=== PATIENT | female | born 1960 | race Caucasian/White ===

== ENCOUNTER 2018-06-02 00:54 | Outpatient (CLI) | payer BC, SELFPAY ==
--- NOTE | 2018-06-02 13:53 | DI.COMBO_ITS ---
SYMPTOMS/DIAGNOSIS: LT BREAST LUMP, N63.20 MAMMOGRAM, ADDITIONAL VIEWS OF THE LEFT BREAST AND LEFT BREAST ULTRASOUND: Mammograms were interpreted according to the usual protocol including computer analysis with CAD system, tomosynthesis and C view imaging. Comparison is with the prior examinations. Breast density B. No suspicious masses or microcalcifications are seen. The skin and axillae are unremarkable. A left breast ultrasound was performed in the area of palpable abnormality at the 11 o'clock position of the left breast as directed by the patient; no cystic or solid masses are seen. In the retroareolar region of the left breast , there is a very well-circumscribed round avascular hypoechoic lesion measuring 1 cm in maximum diameter. No internal blood flow, posterior acoustic enhancement or shadowing is seen. IMPRESSION: No definite evidence for malignancy. Well-circumscribed nodule in the left retroareolar region without malignant characteristics sonographically. A six-month followup left breast ultrasound and mammogram are requested for reevaluation. In the area of palpable abnormality, no findings are seen mammographically or sonographically. Category 3. The findings were discussed with the patient on the date of the examination. MQSA ASSESSMENT OF FINDINGS: Probably benign. Six month follow-up recommended. Category 3. Patient will receive a letter notifying them of these results. BI-RADS category B. There are scattered areas of fibroglandular density.
== END 2018-06-02 01:14 ==
PROVIDERS: PCP Nurse Practitioner Family; Visit Provider Obstetrics & Gynecology
DX: N63.22 Unspecified lump in the left breast, upper inner quadrant (principal)
CPT/HCPCS: 76642; 77062; 77066; G0279

== ENCOUNTER 2018-12-15 01:28 | Outpatient (CLI) | payer BC, SELFPAY ==
--- NOTE | 2018-12-15 09:57 | DI.COMBO_ITS ---
SYMPTOM/DIAGNOSIS: F/U ABNL MAMMO, 6 MO F/U, R92.8 LEFT MAMMOGRAM : Mammograms were interpreted according to the usual protocol including computer analysis with CAD system, tomosynthesis and C view imaging. This is a 6 month follow up from 06/02/18. The left breast is composed of scattered fibroglandular densities, breast density, Category B. No suspicious masses or suspicious microcalcifications are seen. LEFT BREAST ULTRASOUND: The exam was performed to follow up a circumscribed nodule. The nodule is again circumscribed with smooth borders and measures 8 mm. in diameter. No suspicious features are seen. IMPRESSION: Category 3, negative mammogram with benign findings. Bilateral screening should be resumed in 6 months. SA ASSESSMENT OF FINDINGS: Negative with benign findings. Category 3. Patient will receive a letter notifying them of these results. BI-RADS category B. There are scattered areas of fibroglandular density.
== END 2018-12-15 01:48 ==
PROVIDERS: PCP Nurse Practitioner Family; Visit Provider Obstetrics & Gynecology
DX: Z12.31 Encounter for screening mammogram for malignant neoplasm of breast (principal); R92.8 Other abnormal and inconclusive findings on diagnostic imaging of breast; N60.82 Other benign mammary dysplasias of left breast
CPT/HCPCS: 76642; 77061; 77065; G0279

== ENCOUNTER 2019-04-05 08:06 | Day surgery (SDC) | payer BC, SELFPAY ==
--- NOTE | 2019-04-05 06:58 | COLE_ITS ---
Date of service: 04/05/19 Time of Service: 09:29 Colonoscopy Report Date of procedure: 04/05/19 Pre-op diagnosis general: Hx of polyps Post-op diagnosis procedure note: other (Polyps) Procedure: Colonoscopy with polypectomies by cold forceps Surgeon: Lisa Martini Anesthesia proc note operative: other (General/ ASA 2/ Olive Betancur CRNA) Estimated blood loss (mL): 5 Pathology: other (Ascending colon polyps and transverse colon polyps) Complications: None Disposition: same day Indications: Mrs Pepe is a pleasant 58-year-old female who was seen in the office for a colonoscopy. Her last colonoscopy was in 2013 where she was found to have a tubular adenoma. Risks, benefits and complications have been reviewed. Complications include but are not limited to bleeding, pain, perforation, missed small lesion/polyp, sore throat, aspiration and adverse reaction to the medications. Questions were entertained and answered to their satisfaction and they wished to proceed. No guarantees were given or implied. Prep: Miralax/Dulcolax Procedure Start Time: : Procedure End Time: 10:00 Retraction Time: 26 minutes Findings: Multiple small polyps Procedure Description: After informed consent was obtained the patient was taken to the procedure room and placed in a left decubitous position. Monitors were applied and a time out was done. The patients name, date of , procedure, allergies to medications and metal in their body was reviewed. The patient was then sedated. Once sedated and comfortable a rectal exam was done. External exam was normal. Internal exam revealed a normal sphincter tone and no palpable mass es. The scope was then introduced and retro-flexed. No internal hemorrhoids, masses or polyps were identified. The scope was then advanced to the cecum without difficulty. The TI and appendiceal orifice were identified. The prep was good. The scope was then slowly retracted over 26 minutes back into the rectum. Polyps were removed with cold forceps in the ascending colon and transverse col on. The scope was removed and the patient was woken up and taken back to Same day surgery in stable condition. The patient tolerated the procedure well and there were no immediate complications. Follow up: The patient should follow up in 3-5 years unless they develop changes in bowel habits or other new gastrointestinal complaints.
--- NOTE | 2019-04-05 06:59 | PDOC.DSDIS_ITS ---
Discharge Plan Disposition Patient Disposition: HOME Condition: Good Discharge Details Reason For Visit: Hx of Colon Polyp Attending Provider: Lisa Martini Primary Care Provider: Jeovany Houston Home Meds and New Rx's Prescriptions: Continued cholecalciferol (vitamin D3) 1,000 unit capsule 1,000 unit PO DAILY RF: 0 clonidine HCl 0.1 mg tablet 0.1 mg PO BID RF: 0 cranberry extract 300 mg tablet 300 mg PO DAILY RF: 0 aspirin [Adult Low Dose Aspirin] 81 mg tablet,delayed release (DR/EC) 81 mg PO DAILY RF: 0 calcium carbonate-vitamin D3 [Calcium 600 with Vitamin D3] 600 mg(1,500mg) - 400 unit capsule 1 cap PO DAILY RF: 0 losartan 50 MG tablet 100 mg PO DAILY Qty: 1 RF: 0 loratadine 10 MG tablet 10 mg PO DAILY RF: 0 multivitamin [Daily Multi-Vitamin] 1 EACH tablet 1 tab PO DAILY RF: 0 Discharge Instructions Instructions: Colonoscopy (GEN), Colorectal Polyps (GEN) Additional Instructions: Findings: Multiple small polyps Follow up: 3-5 years Please call if you develop: fevers >101.5 Nausea or Vomiting Abdominal pain that is not transient DAY SURGERY UNIT POST COLONOSCOPY INSTRUCTIONS 1. Because there will be medication in your system for the next 24 hours, you may feel a little sleepy. Your coordination will be affected. Therefore: a. Do not drive or operate dangerous equipment for 24 hours. b. Do not drink alcohol beverages for 24 hours (not even beer). c. Plan to go home and rest for the day. 2. Generally there are no restrictions on your activity after a day or so has gone by, but you may feel a bit fatigued for a few days. 3 After you arrive home you may have a light meal and return to a normal diet as you can tolerate it without feeling sick to your stomach. 4. After surgery, you may feel pain or discomfort. This should be only transient, but if it persists please contact your doctor. 5. If there are any questions regarding the findings of your procedure, please feel free to contact your doctor. 6. If you are unable to contact your doctor with a problem, contact the hospital at [phone]. 7. Continue all your regular medications unless directed otherwise. I understand the above instructions and have no questions. Signature of Patient or Responsible Adult Escort Date/Time Name of Responsible Adult Escort Signature of Nurse Date/Time Activity:: Activity as Tolerated Diet:: As Tolerated Discharge Orders Discharge Orders: Discharge Order (Routine); Ordered 04/05/19 Ordered By: Lisa Martini DS: Diagnosis Discharge Diagnosis (1) History of colonoscopy: Status: Chronic (2) Colon polyp: Status: Resolved
[2019-04-05 08:26] VITALS: BP 146/104; PULSE 72; RESP 18; TEMP 36; O2SAT 100
[2019-04-05] MEDS: Lactated Ringers 1,000 ML 80 ML IV (08:34)
[2019-04-05] MEDS: Lidocaine 2% Pres-Free 5 ML VIAL (09:25)
[2019-04-05] MEDS: PROPOFOL 500 MG/50 ML BTL 40 MG (09:25)
--- NOTE | 2019-04-05 09:44 | BOWEL_PTH ---
PATIENT: Rema Pepe LOC: [facility] U#:[id number] AGE/SX: 58/F ROOM: RE04/05/[address]: Lisa Martini MD : 1960 BED: DIS: 04/05/2019 SPEC #: [id number] RECD: 04/05/19 12:40 STATUS: BRANDON RE #: [id number] FROY: 04/05/19 09:[address]: Lisa Martini DEPT: Surgical Specimen RECD BY: Jessica Esparza ENTERED: 04/05/19 12:41 SP TYPE: Bowel OTHR DR: Jeovany Houston Tissues: 1 - BIOPSY BOWEL 2 - BIOPSY BOWEL Procedures: GROSS AND MICRO LEVEL 4 Comments: [id number]
[2019-04-05 10:40] VITALS: BP 129/65; PULSE 50; RESP 16; TEMP 36; O2SAT 100
== END 2019-04-05 11:15 | disposition home or self-care (01) ==
LOC: SUR 08:06
PROVIDERS: PCP Nurse Practitioner Family; Visit Provider Surgery
PROC: 0DJD8ZZ Inspection of Lower Intestinal Tract, Via Natural or Artificial Opening Endoscopic (ICD-10-PCS; CPT 45378; principal; 2019-04-05 09:30)
DX: Z12.11 Encounter for screening for malignant neoplasm of colon (principal); Z86.010 Personal history of colon polyps; D12.2 Benign neoplasm of ascending colon; D12.3 Benign neoplasm of transverse colon; I10 Essential (primary) hypertension
CPT/HCPCS: 45380; 88305

== ENCOUNTER 2019-08-11 00:57 | Outpatient (CLI) | payer BC, SELFPAY ==
--- NOTE | 2019-08-11 15:28 | DI.MAMMO_ITS ---
EXAM: MG MAMMO SCREENING CLINICAL HISTORY: screening, Z12.39. TECHNIQUE: Full field digital CC and MLO mammographic images were obtained with 3D tomosynthesis and utilizing computer aided detection (CAD). COMPARISON: 2008 through November,. FINDINGS: Breast Density - Category B - Scattered areas of fibroglandular density Masses/Architectural Distortion: None seen. Microcalcifications: No suspicious pleomorphic-type calcifications are seen. Skin Thickening/Nipple Retraction: None. Axilla: Unremarkable. IMPRESSION: 1. BI-RADS category 1, negative. No significant interval change with no specific features of maligna ncy noted. 2. Unless there is more urgent need, screening mammography is recommended, as per [place] [employer] guidelines. BI-RADS Cat 1 - Negative Breast Density - Category B - Scattered areas of fibroglandular density A negative radiographic report should not delay biopsy if a dominant or clinically suspicious mass is present. Up to ten percent of cancers are not identified on mammography. A negative report may reinforce clinical impression. Adenosis and dense breasts may obscure an underlying neoplasm. False positive reports average 6 to 10%. Patient will receive a letter notifying them of these results.
== END 2019-08-11 01:17 ==
PROVIDERS: PCP Nurse Practitioner Family; Visit Provider Nurse Practitioner Women's Health
DX: Z12.31 Encounter for screening mammogram for malignant neoplasm of breast (principal)
CPT/HCPCS: 77063; 77067

== ENCOUNTER 2020-01-24 17:52 | Outpatient (REF) | payer BC, SELFPAY ==
[2020-01-24 16:32] LABS: HCT 43.8 % (36.0-46.0); Mean Corp. HGB Concentration 34.2 g/dL (32.0-36.0); Mean Corpuscular Hemoglobin 30.6 pg (27.0-33.0); Mean Corpuscular Volume 89.4 fL (80-95); Mean Platelet Volume 9.7 fL (8.0-11.0); Platelet Count 233 x1000/uL (130-400); White Blood Cell Count 3.59 k/cumm (4.4-10.8)
[2020-01-24 17:06] LABS: Albumin 3.9 g/dL (3.4-5.0); Alkaline Phosphatase 113 U/L (46-116); BUN 20 mg/dL (7-18); Bilirubin, Total 0.4 mg/dL (0.2-1.0); CO2 28.6 mmol/L (21.0-32.0); Calcium 9.4 mg/dL (8.5-10.1); Calculated LDL 115 mg/dL (<100); Chloride 105 mmol/L (98-107); Cholesterol 204 mg/dL (<200); Glucose 99 mg/dL (74-106); HDL Cholesterol 83 mg/dL (40-60); Potassium 4.3 mmol/L (3.5-5.1); Sodium 140 mmol/L (136-145); Total Protein 6.6 g/dL (6.4-8.2); Triglyceride 33 mg/dL (<150)
[2020-01-24 17:07] LABS: ALT 46 U/L (14-59); AST 26 U/L (15-37); Anion Gap 6.4 mmol/L (3-11); Magnesium 1.9 mg/dL (1.8-2.4); TSH (W/Ref FT4) 0.94 uIU/mL (0.36-3.74)
== END 2020-01-24 18:12 ==
LOC: NCHCN 17:52
PROVIDERS: PCP Nurse Practitioner Family; Visit Provider Nurse Practitioner Family
DX: I10 Essential (primary) hypertension (principal); Z13.220 Encounter for screening for lipoid disorders; Z68.30 Body mass index [BMI] 30.0-30.9, adult
CPT/HCPCS: 80053; 80061; 85027; 83735; 84443

== ENCOUNTER 2020-02-28 10:17 | Outpatient (REF) | payer BC, SELFPAY ==
[2020-02-28 16:56] LABS: Anion Gap 7.2 mmol/L (3-11); BUN 26 mg/dL (7-18); CO2 27.8 mmol/L (21.0-32.0); CREATININE 0.86 mg/dL (0.55-1.02); Calcium 9.5 mg/dL (8.5-10.1); Chloride 106 mmol/L (98-107); Glucose 104 mg/dL (74-106); Potassium 5.1 mmol/L (3.5-5.1); Sodium 141 mmol/L (136-145)
== END 2020-02-28 10:37 ==
LOC: NCHCN 10:17
PROVIDERS: PCP Nurse Practitioner Family; Visit Provider Nurse Practitioner Family
DX: Z79.899 Other long term (current) drug therapy (principal)
CPT/HCPCS: 80048

== ENCOUNTER 2021-05-15 15:54 | Outpatient (REF) | payer BC, SELFPAY ==
--- NOTE | 2021-05-15 13:30 | PAPFT_PTH ---
PATIENT: Rema Pepe LOC: [facility] U#:[id number] AGE/SX: 60/F ROOM: RE05/15/[address]: ESAU Pozo : 1960 BED: DIS: 05/15/2021 SPEC #: [id number] RECD: 05/15/21 16:17 STATUS: BRANDON REQ #: [id number] FROY: 05/15/21 13:[address]: Tory Jo DEPT: [facility] Cytology RECD BY: Jessica Esparza ENTERED: 05/15/21 16:17 SP TYPE: PAPFT OTHR DR: Jeovany Houston Tissues: 1 - CX/ENDOCX FOR PAP SMEARS Procedures: PAP THIN PREP/UVM Screening HPV DNA PROBE Comments: [id number]
== END 2021-05-15 15:55 | disposition home or self-care (01) ==
LOC: LBN 15:54
PROVIDERS: PCP Nurse Practitioner Family; Visit Provider Nurse Practitioner Family
DX: Z12.4 Encounter for screening for malignant neoplasm of cervix (principal); Z11.51 Encounter for screening for human papillomavirus (HPV)
CPT/HCPCS: 88142; 87624

== ENCOUNTER 2021-06-06 02:21 | Outpatient (CLI) | payer BC, SELFPAY ==
--- NOTE | 2021-06-06 08:45 | DI.MAMMO_ITS ---
Exam(s) MAMMO SCREENING EXAM: MAMMO SCREENING CLINICAL HISTORY: screening, Z12.39. TECHNIQUE: Bilateral full field digital CC and MLO mammographic images were obtained with 3D tomosyn thesis and utilizing computer aided detection (CAD). COMPARISON: Prior mammograms dating back to 2011, the most recent being July 2019. FINDINGS: There are no new spiculated masses nor malignant appearing microcalcification groups. There is no significant architectural distortion nor skin thickening-retraction. IMPRESSION: No radiographic evidence of malignancy. BI-RADS Category 1 - Negative Breast Density - Category B - Scattered areas of fibroglandular density Breast density Category C or D implies that the patient has dense breast tissue. Dense breast tissue can make it harder to find cancer on a mammogram. Dense breast tissue is also associated with an incr eased risk of breast cancer. This information about the result of the mammogram report was provided to the patient to raise their awareness. Use this report when you speak with the patient about their risks for breast cancer, which includes their family history. At that time, you may recommend additional screening tests (Ultrasoun d or MRI) as these tests may add significant information. A negative radiographic report should not delay biopsy if a dominant or clinically suspicious mass is present. Up to ten percent of cancers are not identified on mammography. A negative report may reinforce clinical impression. Adenosis and dense breasts may obscure an underlying neoplasm. False positive reports average 6 to 10%. Patient will receive a letter notifying them of these results.
== END 2021-06-06 02:41 ==
PROVIDERS: PCP Nurse Practitioner; Visit Provider Nurse Practitioner Family
DX: Z12.31 Encounter for screening mammogram for malignant neoplasm of breast (principal)
CPT/HCPCS: 77063; 77067

== ENCOUNTER 2021-07-24 14:19 | Outpatient (REF) | payer BC, SELFPAY ==
[2021-07-24 16:52] LABS: ALT 36 U/L (14-59); AST 19 U/L (15-37); Albumin 3.8 g/dL (3.4-5.0); Alkaline Phosphatase 110 U/L (46-116); Anion Gap 6.7 mmol/L (3-11); BUN 18 mg/dL (7-18); Bilirubin, Total 0.3 mg/dL (0.2-1.0); CO2 28.3 mmol/L (21.0-32.0); CREATININE 0.8 mg/dL (0.55-1.02); Calcium 9.2 mg/dL (8.5-10.1); Chloride 108 mmol/L (98-107); Glucose 99 mg/dL (74-106); Potassium 4.4 mmol/L (3.5-5.1); Sodium 143 mmol/L (136-145); Total Protein 6.6 g/dL (6.4-8.2)
== END 2021-07-24 14:20 | disposition home or self-care (01) ==
LOC: NCHCN 14:19
PROVIDERS: PCP Nurse Practitioner; Visit Provider Nurse Practitioner
DX: I10 Essential (primary) hypertension (principal)
CPT/HCPCS: 80053

== ENCOUNTER → 2022-07-09 02:51 | Outpatient (CLI) | payer BC, SELFPAY ==
--- NOTE | 2022-07-09 08:08 | DI.MAMMO_ITS ---
Exam(s) MAMMO SCREENING EXAM: MAMMO SCREENING CLINICAL HISTORY: screening,z12.39. TECHNIQUE: Bilateral full field digital CC and MLO mammographic images were obtained with 3D tomosyn thesis and utilizing computer aided detection (CAD). COMPARISON: Prior mammograms were reviewed. FINDINGS: There are no new significant findings in left breast. The right breast on the MLO view there is asymmetric density superiorly approximately 5 cm in from th e nipple, measuring 1.7 x 1.0 cm, somewhat more evident on prior studies. Recommend spot-compression view. There are no new malignant appearing microcalcification groups in this region or elsewhere in either breast. There is no significant architectural distortion nor skin thickening-retraction. IMPRESSION: 1. No radiographic evidence of malignancy in left breast. 2. A segment trick density-possible nodule in the right breast. Follow-up right breast MLO spot view and ultrasound recommended. BI-RADS Category 0 - Assessment Incomplete: Need additional imaging evaluation Breast Density - Category B - Scattered areas of fibroglandular density Breast density Category C or D implies that the patient has dense breast tissue. Dense breast tissue can make it harder to find cancer on a mammogram. Dense breast tissue is also associated with an incr eased risk of breast cancer. This information about the result of the mammogram report was provided to the patient to raise their awareness. Use this report when you speak with the patient about their risks for breast cancer, which includes their family history. At that time, you may recommend additional screening tests (Ultrasoun d or MRI) as these tests may add significant information. A negative radiographic report should not delay biopsy if a dominant or clinically suspicious mass is present. Up to ten percent of cancers are not identified on mammography. A negative report may reinforce clinical impression. Adenosis and dense breasts may obscure an underlying neoplasm. False positive reports average 6 to 10%. Patient will receive a letter notifying them of these results.
== END ==
PROVIDERS: Visit Provider Nurse Practitioner Women's Health
DX: Z12.31 Encounter for screening mammogram for malignant neoplasm of breast (principal); R92.8 Other abnormal and inconclusive findings on diagnostic imaging of breast
CPT/HCPCS: 77063; 77067

== ENCOUNTER → 2022-07-12 00:26 | Outpatient (CLI) | payer BC, SELFPAY ==
--- NOTE | 2022-07-12 | DI.MAMMO_ITS ---
Exam(s) MAMMO SCREEN CALL BACK UNI EXAM: MAMMO SCREEN CALL BACK UNI-RIGHT AND COMPLETE RIGHT BREAST ULTRASOUND CLINICAL HISTORY: POSSIBLE NODULE RT BREAST, ASYMMETRIC DENSITY. TECHNIQUE: Unilateral RIGHT BREAST spot mammographic images obtained with 3D tomosynthesisand utiliz ing computer aided detection (CAD). . Complete RIGHT breast Ultrasound was also performed, including all 4 quadrants, the retroareolar jorge alberto on, and the ipsilateral axilla. COMPARISON: Prior mammograms were reviewed. This additional imaging was performed due to findings described on the recent screening mammogram of 07/12/2022. FINDINGS: DIAGNOSTIC MAMMOGRAM: Additional mammographic views performed todayrenders this area less concerning and similar in appeara nce to prior mammograms. COMPLETE BREAST ULTRASOUND: Ultrasound performed today reveals a solitary finding which is at 10 o'clock position, wider than kaleigh ler superficially located and measures approximately 11 x 5 millimeters. This is uniformly hyperecho ic and has appearance of a probable benign lipoma. This may or may not correspond to the finding on the mammogram at this location. Nevertheless, we were dealing with benign-appearing findings here. Scanning of the ipsilateral axilla reveals no significant adenopathy. IMPRESSION: 1. No radiographic evidence of malignancy in the right breast.. 2. Benign-appearing 10 o'clock position right breast finding on ultrasound. Appropriate follow-up , as discussed by myself with the patient today, is repeat right breast imaging in 6 months to include repeat right breast mammogram and ultrasound. The patient was informed of these findings and recommendations by myself prior to leaving the departm ent today. BI-RADS Category 3 - 6 month - Probably Benign Finding: Recommend follow-up mammography in 6 months Breast Density - Category B - Scattered areas of fibroglandular density Breast density Category C or D implies that the patient has dense breast tissue. Dense breast tissue can make it harder to find cancer on a mammogram. Dense breast tissue is also associated with an incr eased risk of breast cancer. This information about the result of the mammogram report was provided to the patient to raise their awareness. Use this report when you speak with the patient about their risks for breast cancer, which includes their family history. At that time, you may recommend additional screening tests (Ultrasoun d or MRI) as these tests may add significant information. A negative radiographic report should not delay biopsy if a dominant or clinically suspicious mass is present. Up to ten percent of cancers are not identified on mammography. A negative report may reinforce clinical impression. Adenosis and dense breasts may obscure an underlying neoplasm. False positive reports average 6 to 10%. Patient will receive a letter notifying them of these results.
--- NOTE | 2022-07-12 | DI.US_ITS ---
Exam(s) US BREAST RT COMPLETE EXAM: US BREAST RT COMPLETE CLINICAL HISTORY: POSSIBLE NODULE RT BREAST, ASYMMETRIC DENSITY. TECHNIQUE: Complete ultrasound of the right breast was performed including all 4 quadrants, the retr oareolar region, and the ipsilateral axilla. COMPARISON: Prior mammograms were reviewed. FINDINGS: See combined report IMPRESSION: Appropriate follow-up is as described on the combined report. BI-RADS Category 3 - 6 month - Probably Benign Finding: Recommend follow-up mammography in 6 months Breast Density - Category B - Scattered areas of fibroglandular density Breast density Category C or D implies that the patient has dense breast tissue. Dense breast tissue can make it harder to find cancer on a mammogram. Dense breast tissue is also associated with an incr eased risk of breast cancer. This information about the result of the mammogram report was provided to the patient to raise their awareness. Use this report when you speak with the patient about their risks for breast cancer, which includes their family history. At that time, you may recommend additional screening tests (Ultrasoun d or MRI) as these tests may add significant information. A negative radiographic report should not delay biopsy if a dominant or clinically suspicious mass is present. Up to ten percent of cancers are not identified on mammography. A negative report may reinforce clinical impression. Adenosis and dense breasts may obscure an underlying neoplasm. False positive reports average 6 to 10%. Patient will receive a letter notifying them of these results.
== END ==
PROVIDERS: Visit Provider Nurse Practitioner Women's Health
DX: R92.8 Other abnormal and inconclusive findings on diagnostic imaging of breast (principal)
CPT/HCPCS: 76642; 77063; 77067

== ENCOUNTER 2022-08-02 19:07 | Outpatient (REF) | payer BC, SELFPAY ==
--- NOTE | 2022-08-02 15:01 | SKI_PTH ---
PAT[facility]: [id number] AGE/SX: 62/F ROOM: RE08/02/[address]: KAYLIE FAGAN : 1960 BED: DIS: 08/02/2022 SPEC #: [id number] RECD: 08/05/22 12:16 STATUS: BRANDON REQ #: [id number] FROY: 08/02/22 15:[address]: Kaylie Fagan DEPT: Surgical Specimen RECD BY: Jessica Esparza ENTERED: 08/05/22 12:17 SP TYPE: VISHAL CASON DR: Jeovany Houston Tissues: 1 - SKIN BIOPSY(SHAVE/PUNCH) Procedures: SKIN LEVEL 4 Comments: [id number]
[2022-08-02 19:39] LABS: ALT 38 U/L (14-59); AST 27 U/L (15-37); Albumin 4.1 g/dL (3.4-5.0); Alkaline Phosphatase 110 U/L (46-116); Anion Gap 6.4 mmol/L (3-11); BUN 23 mg/dL (7-18); Bilirubin, Total 0.4 mg/dL (0.2-1.0); CO2 30.6 mmol/L (21.0-32.0); Calcium 9.9 mg/dL (8.5-10.1); Calculated LDL 118 mg/dL (<100); Chloride 103 mmol/L (98-107); Cholesterol 228 mg/dL (<200); Glucose 105 mg/dL (74-106); HDL Cholesterol 93 mg/dL (40-60); Sodium 140 mmol/L (136-145); Total Protein 7.3 g/dL (6.4-8.2); Triglyceride 85 mg/dL (<150)
== END 2022-08-02 19:08 | disposition home or self-care (01) ==
LOC: NCHCN 19:07
PROVIDERS: Visit Provider Nurse Practitioner Family
DX: C43.4 Malignant melanoma of scalp and neck (principal); I10 Essential (primary) hypertension; Z13.220 Encounter for screening for lipoid disorders
CPT/HCPCS: 80053; 80061; 88305

== ENCOUNTER 2022-09-11 16:50 | Outpatient (REF) | payer BC, SELFPAY ==
--- NOTE | 2022-09-11 16:15 | VUL_PTH ---
PATIENT: Rema Pepe LOC: [facility] U#:[id number] AGE/SX: 62/F ROOM: RE09/11/[address]: Chelo Palomares MD : 1960 BED: DIS: 09/11/2022 SPEC #: [id number] RECD: 09/11/22 17:36 STATUS: BRANDON RESherly #: [id number] FROY: 09/11/22 16:[address]: Chelo Palomares DEPT: Surgical Specimen RECD BY: Jessica Esparza ENTERED: 09/11/22 17:36 SP TYPE: VUL OTHR DR: Jeovany Houston Tissues: 1 - VULVA BIOPSY Procedures: GROSS AND MICRO LEVEL 4 SPECIAL STAIN 1 Comments: [id number]
== END 2022-09-11 16:51 | disposition home or self-care (01) ==
LOC: LBN 16:50
PROVIDERS: Visit Provider Obstetrics & Gynecology
DX: N90.4 Leukoplakia of vulva (principal); N90.89 Other specified noninflammatory disorders of vulva and perineum
CPT/HCPCS: 88305; 88312

== ENCOUNTER 2023-01-30 01:39 | Outpatient (CLI) | payer BC, SELFPAY ==
--- NOTE | 2023-01-30 14:27 | DI.MAMMO_ITS ---
Exam(s) MG MAMMO DIAGNOSTIC UNI EXAM: MG MAMMO DIAGNOSTIC UNI CLINICAL HISTORY: f/u abnl mammo, 6 mo f/u. TECHNIQUE: Craniocaudal and mediolateral oblique Full Field Digital Mammography views of the right b reast with Computer Aided Diagnosis followed by Tomosynthesis. COMPARISON: Comparison is made with prior examinations. FINDINGS: Mammography/Tomosynthesis: Masses/Architectural Distortion: None seen. Microcalcifictions: No suspicious pleomorphic-type are seen. Skin Thickening/Nipple Retraction: None. IMPRESSION: 1. No evidence of malignancy is noted. 2. Unless there is more urgent need, follow-up screening mammography is recommended, as per [place] [employer] guidelines. 3. The findings were discussed with the patient on the date of the examination. BI-RADS Category 1 - Negative Breast Density - Category B - Scattered areas of fibroglandular density Breast density Category C or D implies that the patient has dense breast tissue. Dense breast tissue can make it harder to find cancer on a mammogram. Dense breast tissue is also associated with an incr eased risk of breast cancer. This information about the result of the mammogram report was provided to the patient to raise their awareness. Use this report when you speak with the patient about their risks for breast cancer, which includes their family history. At that time, you may recommend additional screening tests (Ultrasoun d or MRI) as these tests may add significant information. A negative radiographic report should not delay biopsy if a dominant or clinically suspicious mass is present. Up to ten percent of cancers are not identified on mammography. A negative report may reinforce clinical impression. Adenosis and dense breasts may obscure an underlying neoplasm. False positive reports average 6 to 10%. Patient will receive a letter notifying them of these results.
== END 2023-01-30 01:59 ==
LOC: DI 01:40
PROVIDERS: PCP Nurse Practitioner Family; Visit Provider Nurse Practitioner Women's Health
DX: Z12.31 Encounter for screening mammogram for malignant neoplasm of breast (principal); R92.8 Other abnormal and inconclusive findings on diagnostic imaging of breast
CPT/HCPCS: 77061; 77065; G0279

== ENCOUNTER 2023-03-17 08:14 | Day surgery (SDC) | payer BC, SELFPAY ==
--- NOTE | 2023-03-16 23:12 | COLE_ITS ---
Date of service: 03/17/23 Time of Service: 09:39 Colonoscopy Report Date of procedure: 03/17/23 Pre-op diagnosis general: Multiple adenomatous polyps/lichen planus Post-op diagnosis procedure note: other (Internal and external hemorrhoids) Surgeon: Erna Garrison Anesthesia Type: General:No Airway Estimated blood loss (mL): 0 Pathology: none sent Complications: None Disposition: same day Prep: Miralax/Dulcolax Retraction Time: 11 Procedure Description: After informed consent was obtained the patient was taken to the procedure room and placed in a left decubitous position. Monitors were applied and a time out was done. The patients name, date of , procedure, allergies to medications and metal in their body was reviewed. The patient was then sedated. Once sedated and comfortable a rectal exam was done. External exam shows external hemorrhoids without any thrombosis.. Internal exam revealed a normal sphincter tone and no palpable masses. The scope was then introduced and retrofelexed. Grade 1 internal hemorrhoids x2 columns, and hemorrhoidal tags. The scope was then advanced to the cecum without difficulty. The TI and appendiceal orifice were identified. The prep was BBPS 3 in all segments for a total of 9. The scope was then slowly retracted over 11 minutes back into the rectum. There are no polyps, AVMs, or diverticula visualized today. The mucosa is pink and healthy with a normal vascular pattern. The scope was removed and the patient was woken up and taken back to Same day surgery in stable condition. The patient tolerated the procedure well and there were no immediate c omplications. Follow up: The patient should follow up in 5 years unless they develop changes in bowel habits or other new gastrointestinal complaints.
--- NOTE | 2023-03-16 23:13 | PDOC.DSDIS_ITS ---
Date of service: 03/17/23 Time of Service: 09:42 Discharge Plan Disposition Patient Disposition: Home Condition: Good Discharge Details Reason For Visit: Colon scope Attending Provider: Erna Garrison Primary Care Provider: Kaylie Fagan Home Meds and New Rx's Prescriptions: Continued calcium carbonate-vitamin D3 [Calcium 600 with Vitamin D3] 600 mg(1,500mg) - 400 unit capsule 1 cap PO DAILY amlodipine 10 mg tablet 2.5 mg PO HS Patient Comments: 09/11/22- Uncertain of dose, fairly certain it is 2.5 mg. estradiol 0.01 % (0.1 mg/gram) cream 1 g vaginal DAILY Qty: 42.5 3RF Rx Instructions: for 14 days then decrease to 2-3 times weekly. clobetasol 0.05 % ointment 1 applic topical BID PRN (Reason: irritation) Qty: 45 3RF losartan 50 MG tablet 100 mg PO HS Qty: 1 loratadine 10 MG tablet 10 mg PO DAILY multivitamin [Daily Multi-Vitamin] 1 EACH tablet 1 tab PO DAILY Discontinued bisacodyl [Dulcolax (bisacodyl)] 5 mg tablet,delayed release (DR/EC) 5 mg PO ONCE Qty: 4 0RF Rx Instructions: Take per colonoscopy instructions provided by ordering providers office polyethylene glycol 3350 17 gram/dose powder 17 g PO ONCE Qty: 238 0RF Rx Instructions: Take per colonoscopy instructions provided by ordering providers office Discharge Instructions Additional Instructions: DSU Colonoscopy Post- Op Instructions Instructions for Everyone who is given Anesthesia: For your safety, please do the following for the next twenty-four (24) hours: *Do Not operate a motor vehicle (car, truck, motorcycle, etc.) *Do Not drink alcoholic beverages or use any recreational drugs for the first 24 hours or while taking pain medications. The medications in your body may have a reaction that can be dangerous. *Do Not make any important decisions or sign any important papers. Findings: normal colon today/no polyps Follow up: Repeat colonoscopy in 5 years due to your history of polyps. 1. No lifting over 20 pounds or strenuous activity for the first 24 hours after your procedure. After 24 hours there are no restrictions on your activity but you may feel fatigued for a few days. 2. After you arrive home you may have a light meal and return to your normal diet as you can tolerate it without feeling sick to your stomach. 3. You may have a bloated, gaseous feeling in your belly (abdomen) after a colonoscopy. Passing gas and belching will help. Walking or lying down on your left side with your knees flexed may relieve the discomfort. Call the office at [phone] (Office) or [phone] (Hospital) right away if you notice any of the following: a.Vomiting of blood or ?coffee ground stools?. b.Rectal bleeding 1Tbsp, blood clots or continuous bleeding. c.Severe belly (abdominal) pain. d.A hard distended belly (abdomen) and an inability to pass gas. 4. Please don?t expect to have a normal BM (bowel movement) for 2-3 days after your procedure. 5. If there are questions regarding the findings of your procedure, please contact your doctor 6. If you are unable to contact your doctor with a problem, contact the hospital at [phone]. 7. Continue all your regular medications unless directed otherwise. I understand the above instructions and have no questions. Signature of Patient or Adult Escort Name of Responsible Adult Escort Signature of Nurse Date/Time Activity:: See above Diet:: See above Discharge Orders Discharge Orders: Discharge Order (Routine); Ordered 03/17/23 Ordered By: Erna Garrison DS: Diagnosis Discharge Diagnosis (1) Melanoma: Status: Acute (2) Lichen sclerosus of vulva: Status: Acute (3) Adenomatous polyps: Status: Acute Asessment and Plan: ? ? The patient is seen and examined after their colonoscopy.? The patient has been able to pass gas.? They are not having abdominal pain.? They have been able to tolerate liquids and a snack.? They do not have any nausea or vomiting.? They are not having any chest pain or shortness of breath.??? They are not having any rectal bleeding. Their vital signs have been stable-see nursing notes.? ? We discussed findings during their colonoscopy, and any biopsies that were done/polyps that were removed. The patient will be sent a letter with any biopsy results, and when to repeat the colonoscopy.-see discharge instructions.? ? Patient was given explicit instructions to follow-up regarding colonoscopy-refer to discharge instructions.? We reviewed resumption of medications.? Patient verbalized understanding and discharged in stable and satisfactory condition- See nursing notes.? (4) Vaginal atrophy: (5) Obese: (6) Hypertension: (7) Depression: (8) Cystocele:
[2023-03-17 08:23] VITALS: BP 133/89; PULSE 69; RESP 18; TEMP 36.1; O2SAT 99
--- NOTE | 2023-03-17 09:01 | ANES.PREOP_ITS ---
General Info Date of Service Date Performed: 03/17/23 Height: 5 ft 6 in Weight: 75.9 kg Body Mass Index (BMI): 27.0 Surgical Procedure: Operation Date: 03/17/23 09:05 Proposed Procedure Side Surgeon donnell Garrison, DO Meds Allergies and Home Medications Allergies Allergy/AdvReac Type Severity Reaction Status Date / Time hydrochlorothiazide AdvReac Severe heart Verified 03/17/23 08:34 races and potassium drops Home Medication Medication Instructions Recorded losartan 50 mg tablet 100 mg PO HS #1 tab-cap 11/30/12 multivitamin (Daily Multi-Vitamin 1 tab PO DAILY 09/21/13 tablet) loratadine 10 mg tablet 10 mg PO DAILY 12/21/14 calcium carbonate 600 mg-vitamin 1 cap PO DAILY 05/15/18 D3 10 mcg (400 unit) capsule (Calcium 600 with Vitamin D3) amlodipine 10 mg tablet 2.5 mg PO HS 09/11/22 clobetasol 0.05 % topical ointment 1 applic topical BID PRN 01/08/23 irritation #45 grams estradiol 0.01% (0.1 mg/gram) 1 g vaginal DAILY #42.5 grams 01/08/23 vaginal cream Current Visit Medications: Current Medications Generic Name Dose Route Start Last Admin Trade Name Freq PRN Reason Stop Dose Admin Ringer's Solution 1,000 mls @ 80 mls/hr 03/17/23 08:53 IV 04/16/23 08:52 INFUSION KSENIA Sodium Chloride 500 mls @ 0 mls/hr 03/17/23 08:53 Saline 500ml Bag IV 04/16/23 08:52 PRN PRN As Directed IV Miscellaneous Supplies 1 each 03/17/23 08:54 Iv Access IV 04/16/23 08:53 DIRECTED KSENIA Sodium Chloride 0 ml 03/17/23 08:53 Normal Saline Flush 10 Ml Syr IVP 04/16/23 08:52 PRN PRN PFSH Active Problems Active Problems: Problem Status Onset Code Adenomatous polyps D36.9 Melanoma ~07/2022 C43.9 Lichen sclerosus of vulva N90.4 Abnormal mammogram of right breast R92.8 Medical History Medical History Anxiety and depression Colon polyp (~04/05/19) Cystocele (01/18/14) Depression Hypertension Obese SOB (shortness of breath) Vaginal atrophy vaginal estrogen initated May 2022 Medical History Comments:: 03/17/23 pt useds CPAP nightly Surgical History Surgical History Biopsy of breast 2006 R fibroadenoma History of colonoscopy (~04/05/19) 2013-Tubular adenoma Ligation of fallopian tube 1995 transobturator pubovaginal sling For stress urinary incontinence 12/2004 Tobacco Smoking/Tobacco Use Status: Former Tobacco Use Alcohol Alcohol Intake: current Alcohol intake frequency: holidays/special occasions only Alcohol type: other Substance Use Substance use: Never Substance use type: does not use Prental History History 3 Para Hx # Term Pregnancies 2 Multiple births Hx # Pregnancies Ectopic pregnancies AB induced Hx Number of Living Children AB spontaneous Past Pregnancies Del. Date GA/Weeks # Preg Succ Route Wgt Sex Labor Lgth Anesth esia Location Prov Complic 08/06/86 40 No Yes vaginal 2749.904 g Female [facility] 03/05/89 40 No Yes vaginal 2863.302 g Male [facility] Vital Signs and Lab Results Vital Signs Most Recent Vital Signs in EMR: Most Recent Vital Signs Temp Pulse Resp BP Pulse Ox 36.1 C L 69 18 133/89 99 03/17/23 08:23 03/17/23 08:23 03/17/23 08:23 03/17/23 08:23 03/17/23 08:23 Lab Results Blood Type / Crossmatch: No Data to Display Complete Blood Count: No Data to Display Complete Metabolic Panel: No Data to Display Liver Function Panel: No Data to Display Coagulation Panel: No Data to Display Cardiac Panel: No Data to Display Arterial Blood Gas: No Data to Display Venous Blood Gas: No Data to Display Pancreas Panel: No Data to Display Thyroid Panel: No Data to Display Infectious Disease: No Data to Display Blood Cultures: No Data to Display Toxicology Panel: No Data to Display Anesthesia Assessment and Plan Anesthesia History Personal History: No History of Anesthesia Complications Family History: No Family History of Anesthesia Complications Exercise Tolerance Exercise Tolerance: Metabolic Equivalents>4 Pertinent Negatives Pertinent Negatives: No Symptoms of GERD Cardiac & Pulmonary Exam Cardiac Exam: Normal S1/S2 Heart Sounds Pulmonary Exam: Clear Bilateral Breath Sounds Implantable Cardiac Device Does patient have a Pacemaker or an ICD?: No Airway Exam Known Difficult Airway: No Mallampati Class: 2 Mouth Opening: Normal (> 3cm) Thyromental Distance: Greater than 3 cm Neck Range of Motion: Full ROM Neck Circumference: Normal Teeth Condition: Normal Dentition ASA Classification ASA Score: ASA 2 Emergency Case?: No NPO Status NPO Status: NPO Clears >2 hours, Solids >8 hours Anesthesia Plan Resuscitation Status: Full Code Anesthesia Technique: General Anesthesia Airway Planned: Natural Airway Monitors Used: Standard Monitors
[2023-03-17 09:02] VITALS: BMI 27.0
[2023-03-17] MEDS: Lactated Ringers 1,000 ML 80 ML IV (09:03)
[2023-03-17 09:37] VITALS: BP 116/76; PULSE 65; RESP 16; TEMP 36; O2SAT 97
--- NOTE | 2023-03-17 09:45 | W.ANESPOSTOP ---
Postoperative Evaluation Date, Time and Location Date Performed: 03/17/23 Time Performed: 09:45 Patient Location: Day Surgery Unit Vital Signs Most Recent Imported Vital Signs: Most Recent Vital Signs Temp Pulse Resp BP Pulse Ox 36 C L 65 16 116/76 97 03/17/23 09:37 03/17/23 09:37 03/17/23 09:37 03/17/23 09:37 03/17/23 09:37 Pain Score Most Recent Pain Score: Most Recent Pain Score Pain Level 0 03/17/23 09:37 Assessment Mental Status: Awake (Alert & Oriented to Patient Baseline) Airway and Respiratory Function: Patent airway with normal (patient baseline) respiratory exam Cardiovascular Function: Hemodynamically Stable Hydration Status: Adequately Hydrated Nausea & Vomiting: No Nausea or Vomiting Pain: Pt. Denies Any Pain Peripheral Nerve Block: Patient did not receive a nerve block
[2023-03-17 10:05] VITALS: BP 135/89; PULSE 57; RESP 16; TEMP 36; O2SAT 100
== END 2023-03-17 10:06 | disposition home or self-care (01) ==
PROVIDERS: PCP Nurse Practitioner Family; Visit Provider Surgery
PROC: 0DJD8ZZ Inspection of Lower Intestinal Tract, Via Natural or Artificial Opening Endoscopic (ICD-10-PCS; CPT 45378; principal; 2023-03-17 09:00)
DX: Z12.11 Encounter for screening for malignant neoplasm of colon (principal); Z86.010 Personal history of colon polyps; K64.0 First degree hemorrhoids; K64.4 Residual hemorrhoidal skin tags
CPT/HCPCS: 45378; J2001

== ENCOUNTER 2023-04-01 02:19 | Outpatient (CLI) | payer BC, SELFPAY ==
--- NOTE | 2023-04-01 | DI.DEXA_ITS ---
Exam(s) XR DEXA BONE DENSITY W/WO KARIE EXAM: XR DEXA BONE DENSITY W/WO KARIE CLINICAL HISTORY: OSTEOPENIA 2016, OTHER SPECIFIED DISORDERS OF BONE DENSITY, M85.88 TECHNIQUE: COMPARISON: DX DEXA BONE DENSITY WITH KARIE from 07/23/2016 FINDINGS: Lateral Spine Image: Unremarkable. No compression deformities identified. Left hip: Total T-Score: -0.3. This compares to 0.5 on the prior examination. Total Z-Score: 0.9 T- and Z-scores: Within normal limits. There is osteopenia in the femoral neck with a T-score of -1.5 . There is no osteoporosis. Lumbar Spine: Total T-Score: -1.7. This compares to -1.1 on the prior examination. Total Z-Score: -0.1 T- and Z-scores: Findings are consistent with osteopenia. IMPRESSION: No evidence of osteoporosis.
== END 2023-04-01 02:39 ==
LOC: DI 02:19
PROVIDERS: PCP Nurse Practitioner Family; Visit Provider Nurse Practitioner Family
DX: Z13.820 Encounter for screening for osteoporosis (principal); M85.88 Other specified disorders of bone density and structure, other site
CPT/HCPCS: 77080

== ENCOUNTER → 2023-07-15 02:07 | Outpatient (CLI) | payer BC, SELFPAY ==
--- NOTE | 2023-07-15 07:00 | DI.MAMMO_ITS ---
Exam(s) MAMMO SCREENING EXAM: MAMMO SCREENING CLINICAL HISTORY: screening,z12.31 TECHNIQUE: Bilateral full field digital CC and MLO mammographic images were obtained with 3D tomosyn thesis and utilizing computer aided detection (CAD). COMPARISON: Available for comparison. FINDINGS: Masses/Architectural Distortion: None seen. Microcalcifications: No suspicious pleomorphic-type are seen. Skin Thickening/Nipple Retraction: None. IMPRESSION: 1. No significant interval change with no specific features of malignancy noted. 2. Unless there is more urgent need, screening mammography is recommended, as per [employer] guidelines. BI-RADS Category 1 - Negative Breast Density - Category B - Scattered areas of fibroglandular density Breast density category C or D implies that the patient has dense breast tissue. Dense breast tissue is very common and is not abnormal but dense breast tissue can make it harder to find cancer on a ma mmogram. Also, dense breast tissue may increase their breast cancer risk. This information about the result of the mammogram report was provided to the patient to raise their awareness. Use this report when you speak with the patient about their risks for breast cancer, which includes their family hist ory. At that time, you may recommend for more screening tests (Ultrasound or MRI) as they might be us eful based on their risk. A negative radiographic report should not delay biopsy if a dominant or clinically suspicious mass is present. Up to ten percent of cancers are not identified on mammography. A negative report may reinforce clinical impression. Adenosis and dense breasts may obscure an underlying neoplasm. False positive reports average 6 to 10%. Patient will receive a letter notifying them of these results.
== END ==
PROVIDERS: PCP Nurse Practitioner Family; Visit Provider Obstetrics & Gynecology
DX: Z12.31 Encounter for screening mammogram for malignant neoplasm of breast (principal)
CPT/HCPCS: 77063; 77067

== ENCOUNTER 2023-07-28 13:01 | Outpatient (REF) | payer BC, SELFPAY ==
[2023-07-28 15:01] LABS: ALT 43 U/L (14-59); AST 30 U/L (15-37); Albumin 3.6 g/dL (3.4-5.0); Alkaline Phosphatase 89 U/L (46-116); BUN 17 mg/dL (7-18); Bilirubin, Total 0.4 mg/dL (0.2-1.0); CREATININE 0.9 mg/dL (0.55-1.02); Calcium 9.9 mg/dL (8.5-10.1); Calculated LDL 122 mg/dL (<100); Chloride 107 mmol/L (98-107); Cholesterol 218 mg/dL (<200); Estimated GFR 71.39 (mL/min/1.73m2); Glucose 97 mg/dL (74-106); HDL Cholesterol 88 mg/dL (40-60); Potassium 4.5 mmol/L (3.5-5.1); Sodium 141 mmol/L (136-145); Triglyceride 42 mg/dL (<150)
== END 2023-07-28 13:02 | disposition home or self-care (01) ==
LOC: NCHCN 13:01
PROVIDERS: PCP Nurse Practitioner Family; Visit Provider Nurse Practitioner Family
DX: I10 Essential (primary) hypertension (principal); E78.5 Hyperlipidemia, unspecified
CPT/HCPCS: 80053; 80061

== ENCOUNTER 2024-07-16 01:42 | Outpatient (CLI) | payer MEDICARE, BC, SELFPAY ==
--- NOTE | 2024-07-16 12:16 | DI.MAMMO_ITS ---
Exam(s) MAMMO SCREENING EXAM: MAMMO SCREENING CLINICAL HISTORY: screening. TECHNIQUE: Bilateral full field digital CC and MLO mammographic images were obtained with 3D tomosyn thesis and utilizing computer aided detection (CAD). COMPARISON: Prior mammograms were reviewed. FINDINGS: There has been no significant change in the appearance and distribution of the fibroglandular tissue. There are no new spiculated masses nor malignant appearing microcalcification groups. There is no significant architectural distortion nor skin thickening-retraction. IMPRESSION: No radiographic evidence of malignancy. BI-RADS Category 1 - Negative Breast Density - Category B - Scattered areas of fibroglandular density Breast density Category C or D implies that the patient has dense breast tissue. Dense breast tissue can make it harder to find cancer on a mammogram. Dense breast tissue is also associated with an incr eased risk of breast cancer. This information about the result of the mammogram report was provided to the patient to raise their awareness. Use this report when you speak with the patient about their risks for breast cancer, which includes their family history. At that time, you may recommend additional screening tests (Ultrasoun d or MRI) as these tests may add significant information. A negative radiographic report should not delay biopsy if a dominant or clinically suspicious mass is present. Up to ten percent of cancers are not identified on mammography. A negative report may reinforce clinical impression. Adenosis and dense breasts may obscure an underlying neoplasm. False positive reports average 6 to 10%. Patient will receive a letter notifying them of these results.
== END 2024-07-16 02:02 ==
PROVIDERS: PCP Nurse Practitioner Family; Visit Provider Obstetrics & Gynecology
DX: Z12.31 Encounter for screening mammogram for malignant neoplasm of breast (principal); R92.323 Mammographic fibroglandular density, bilateral breasts
CPT/HCPCS: 77063; 77067

== ENCOUNTER 2025-06-29 14:03 | Outpatient (REF) | payer MEDICARE, BC, SELFPAY ==
--- NOTE | 2025-06-29 13:46 | PAPFT_PTH ---
PATIENT: Rema Pepe LOC: [facility] U#:[id number] AGE/SX: 64/F ROOM: RE06/29/[address]: Chelo Palomares MD : 1960 BED: DIS: 06/29/2025 SPEC #: [id number] RECD: 06/29/25 17:58 STATUS: BRANDON ROHINI #: [id number] FROY: 06/29/25 13:[address]: Chelo Palomares DEPT: [facility] Cytology RECD BY: Jessica Esparza ENTERED: 06/29/25 17:59 SP TYPE: PAPFT OTHR DR: Marlen Rodriguez Tissues: 1 - CX/ENDOCX FOR PAP SMEARS Procedures: PAP THIN PREP/[facility] Screening HPV DNA PROBE Comments: [id number] (HPV 16 & 18/45)
== END 2025-06-29 14:04 | disposition home or self-care (01) ==
LOC: LBN 14:03
PROVIDERS: PCP Nurse Practitioner Family; Visit Provider Obstetrics & Gynecology
DX: Z12.4 Encounter for screening for malignant neoplasm of cervix (principal)
CPT/HCPCS: 88142; 87624